=== PATIENT | male | born 1995 | race Caucasian/White ===

== ENCOUNTER 2023-12-16 08:26 | Emergency (ER) | payer MEDICAID ==
[~2023-12-16] VITALS: Ht 185.4 cm; Wt 90.7 kg
[2023-12-16 08:35] VITALS: BP_SYST 139; PULSE 99; RESP 18; TEMP 98.6; O2SAT 99
[2023-12-16] MEDS ORDERED: IBUP-1971 PO (08:42)
[2023-12-16] MEDS ORDERED: AMOX500C2 PO (08:42)
[2023-12-17] MEDS ORDERED: VALA10002 PO (11:19)
== END 2023-12-16 09:24 | disposition home or self-care (01) ==
LOC: SED 08:26
DX: J02.9 Acute pharyngitis, unspecified (principal); Z79.899 Other long term (current) drug therapy
CPT/HCPCS: 99283

== ENCOUNTER 2023-12-16 22:04 | Emergency (ER) | payer MEDICAID ==
[~2023-12-16] VITALS: Ht 185.4 cm; Wt 90.7 kg
[~2023-12-16 22:04] MED LIST: AMOX500C2 PO; IBUP-1971 PO
[2023-12-16 22:11] VITALS: BP_SYST 133; PULSE 126; RESP 20; TEMP 102.7; O2SAT 99
[2023-12-16] MEDS: NACL 0.9% 1,000 ML IV ONE (22:45)
[2023-12-16] MEDS: KETOROLAC TROMETHAMINE 30 MG VIAL IVP ONE (22:45)
[2023-12-16] MEDS: ACETAMINOPHEN 500 MG TABLET PO ONE (22:45)
[2023-12-17] MEDS ORDERED: VALA10002 PO (11:19)
== END 2023-12-16 22:50 | disposition left against medical advice (07) ==
LOC: SED 22:04
DX: R06.02 Shortness of breath (principal); Z53.21 Procedure and treatment not carried out due to patient leaving prior to being seen by health care provider
CPT/HCPCS: 99281

== ENCOUNTER 2023-12-17 09:50 | Emergency (ER) | payer MEDICAID ==
[~2023-12-17] VITALS: Ht 185.4 cm; Wt 90.7 kg
[2023-12-17 10:10] VITALS: BP_SYST 136; PULSE 98; RESP 18; TEMP 96; O2SAT 98
[2023-12-17] MEDS ORDERED: VALA10002 PO (11:19)
[2023-12-17 11:24] VITALS: BP_SYST 131; PULSE 96; RESP 18; TEMP 97; O2SAT 98
== END 2023-12-17 11:37 | disposition home or self-care (01) ==
LOC: SED 09:50
DX: J02.9 Acute pharyngitis, unspecified (principal); K12.0 Recurrent oral aphthae; Z79.899 Other long term (current) drug therapy
CPT/HCPCS: 36415; 86308; 86403; 87081; 87252; 99283